=== PATIENT | male | born 1940 | race Caucasian/White ===

== ENCOUNTER → 2021-06-06 11:13 | Outpatient (CLI) | payer MEDICARE, BC, SELFPAY ==
--- NOTE | 2021-06-06 | DI.MRI.S_ITS ---
PROCEDURE: MR ABDOMEN WO CON INDICATIONS: Disease of biliary tract, unspecified TECHNIQUE: Coronal HASTE through the abdomen, axial 2-D FLASH in- and [id number], and breath-hold T2 FSE with fat saturation through the biliary system and pancreas. Oblique coronal and axial thin-slice HASTE, radial thick-slab HASTE centered on the extrahepatic bile ducts. Intravenous secretin: Not requested. COMPARISON: [facility], , MRI ABDOMEN W/O CONTRAST, 04/20/2021, 10:12. [facility], CT abdomen pelvis 04/04/15. FINDINGS: Image quality: Excellent. Pancreas and biliary system: Intra and extrahepatic biliary system is severely dilated, stable compared to the most recent prior study. No stones are convincingly identified. There is flow artifact in the dilated common duct on some T2 weighted sequences. Blunted ending of the distal common duct is again noted without significant change in morphology. Pancreatic duct remains smooth and minimally dilated in the neck measuring up to 5 mm. The pancreas itself is normal in signal without mass or surrounding edema. The gallbladder is decompressed. Cystic change throughout the slightly thickened wall is seen circumferentially. Bilobed morphology is still present though less apparent. Stricturing in the mid gallbladder is again noted. This has been present since 2016. Other solid organs: The left lobe of the liver is atrophic. The liver demonstrates normal overall signal. Spleen is normal in size. No adrenal nodules. Both kidneys are stable demonstrating numerous cortical cysts and parapelvic cysts bilaterally. No hydronephrosis. Nodes and vessels: No retroperitoneal or mesenteric adenopathy by size criteria. Inferior vena cava is normal size. 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 Bowel and peritoneum: Moderate size hiatal hernia. Ingested material throughout the stomach. The visible bowel loops are normal. Lung bases: No basal pleural effusions. Heart size is normal. Bones and soft tissues: No ventral hernias. Bone marrow is of normal overall signal. IMPRESSION: 1. No change in degree or morphology of severe intra and extrahepatic biliary dilatation. 2. Slight prominence of the midportion of the pancreatic duct with otherwise smooth morphology. No significant change compared to prior. 3. 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 4. Moderate-sized hiatal hernia. 5. Distal aorta ectasia. Consider ultrasound surveillance. Dictated by: Meredith Cruz M.D. on 06/07/2021 at 10:18 Approved by: Meredith Cruz M.D. on 06/07/2021 at 10:38
== END ==
PROVIDERS: Referring Provider Internal Medicine Gastroenterology; Visit Provider Internal Medicine Gastroenterology
DX: K83.8 Other specified diseases of biliary tract (principal); K44.9 Diaphragmatic hernia without obstruction or gangrene; I77.811 Abdominal aortic ectasia; K82.8 Other specified diseases of gallbladder; N20.0 Calculus of kidney
CPT/HCPCS: 74181